=== PATIENT | male | born 1995 | race Caucasian/White ===

== ENCOUNTER → 2020-08-10 14:27 | Outpatient (REF) | payer OTHER, SELFPAY | LOC: ANHLAB 14:27 | PROVIDERS: PCP Family Medicine; Visit Provider Nurse Practitioner | DX: R23.4 Changes in skin texture (principal) | CPT/HCPCS: 88305 ==

== ENCOUNTER 2020-08-28 13:30 | Outpatient (CLI) | payer OTHER, SELFPAY ==
--- NOTE | ~2020-08-28 | US_ITS ---
US breast LT complete DATE: 08/28/2020 14:17 INDICATION: Left breast lump TECHNIQUE: Real-time imaging of the complete left breast with right breast comparison views COMPARISON: None FINDINGS: Mass or shadowing of either breast is evident. IMPRESSION: Negative examination If complaints persist, consider diagnostic mammography Reviewed, dictated and finalized at [facility]. Reviewed, dictated and finalized at [facility]. [facility]
== END 2020-08-28 13:31 | disposition home or self-care (01) ==
PROVIDERS: PCP Family Medicine; Visit Provider Nurse Practitioner
DX: N63.20 Unspecified lump in the left breast, unspecified quadrant (principal)
CPT/HCPCS: 76641

== ENCOUNTER 2024-04-27 12:48 | Outpatient (CLI) | payer OTHER, SELFPAY ==
--- NOTE | ~2024-04-27 | MMUS_ITS ---
EXAMINATION: MM diagnostic alysia LT w nilo, US breast LT complete HISTORY: Left breast enlargement with palpable abnormality. TECHNIQUE: Additional 3-D tomosynthesis images of the breasts were performed and synthetic 2-D images were generated. CAD analysis was submitted and interpreted. High resolution complete left breast ult rasound was performed. COMPARISON: Ultrasound dated 08/28/2020 BREAST PARENCHYMAL COMPOSITION: Dense: The breasts are heterogeneously dense, which may obscure small masses FINDINGS: MAMMOGRAPHIC FINDINGS: There is asymmetric gynecomastia, left greater than right. No discrete mass or architectural distorti on. There are no suspicious calcifications. ULTRASOUND: Complete US of all 4 quadrants of the left breast and retroareolar region was reviewed. At 4:00, 2 cm from the nipple there is a 6 mm cyst. No suspicious solid masses in the left breast to suggest malbismark bonner. IMPRESSION: 1. No evidence for malignancy in the left breast. Benign findings. 2. Recommend follow-up clinical management for gynecomastia. BI-RADS Category 2: Benign finding(s). Reviewed, dictated and finalized at [facility]. IMPRESSION: 1. No evidence for malignancy in the left breast. Benign findings. 2. Recommend follow-up clinical management for gynecomastia. BI-RADS Category 2: Benign finding(s).
== END 2024-04-27 12:49 | disposition home or self-care (01) ==
PROVIDERS: PCP Family Medicine; Visit Provider Plastic Surgery
DX: N63.20 Unspecified lump in the left breast, unspecified quadrant (principal); R92.8 Other abnormal and inconclusive findings on diagnostic imaging of breast
CPT/HCPCS: 76641; 77061; 77065; G0279

== ENCOUNTER 2024-09-02 05:52 | Day surgery (SDC) | payer OTHER, SELFPAY ==
--- NOTE | 2024-09-01 11:03 | P.PNAN_ITS ---
Anes - Initial Pre Proc Eval Procedure: Operation Date: 09/02/24 07:30 Proposed Procedures p Excision Left Breast Mass - Jennifer Higgins MD Date/Time: 09/01/24 11:03 Surgeon: Jennifer Higgins MD Pre Op Diagnosis: Left Breast Mass Patient Data Age: 29 Gender: M Height: 1.78 m Weight: 79.379 kg Allergies Allergy/AdvReac Type Severity Reaction Status Date / Time No Known Allergies Allergy Verified 09/02/24 06:21 Home Medications Medication Instructions Recorded Confirmed Type No Home Medications 04/07/24 09/02/24 History Patient hx anesthesia problems: none Family hx anesthesia problems: none Results Review: All pre-operative results and documents have been reviewed as part of the pre- operative evaluation. [facility] Family History Family History Grandparent High cholesterol Other Family history of Parkinson's disease Social History Social History Smoking status: Unknown if ever smoked Tobacco type: smokeless tobacco Smokeless tobacco user: chewing tobacco Alcohol intake: current Substance use: never Substance use type: does not use Living arrangements: with family Occupation/Education: occupation Gender identity (if verbalized by the patient): Male Sexual Orientation (if Verbalized by the Patient): Straight or Heterosexual Spiritual care concerns: No Agree to blood products: Yes Anes - Eval Final PreProcedure Day of Procedure 09/01/24 11:03 Patient weight: overweight Heart: regular rate and rhythm Lungs: clear to auscultation Airway: Mallampati scale class II Neurological: alert and oriented Last oral intake: >/= 8 hours ASA classification: II Emergent: no Anesthetic plan: proceed Anesthesia type and monitoring: general LMA and standard monitoring Results Review: All pre-operative results and documents have been reviewed as part of the pre- operative evaluation. Informed Consent: The patient's anesthetic plan and its attendant risks and benefits were discussed with the patient/family/POA. Questions were solicited and answers provided to the satisfaction of the patient/family/POA.
[2024-09-02] VITALS (8 sets, daily range): BP systolic 111–141; BP diastolic 71–86; PULSE 75–90; RESP 12–18; TEMP 36.5–36.8; O2SAT 98–100
[2024-09-02] MEDS: LACTATED RINGERS 1,000 ML 30 ML IV CONT (06:28)
--- NOTE | 2024-09-02 06:58 | PM.HPGS ---
History of Present Illness History of Present Illness Chief complaint: Left Breast Mass Narrative: Patient seen and examined in pre-operative holding area. No interval change in medical history or symptoms. Patient remembers previous discussion of benefits and alternatives to procedure. Continues to desire to proceed with left breast mass excision. I reviewed the risks including but not limited to bleeding ,infection, asymmetry, undesireable cosmetic appearance, partial/total skin/nipple loss, no change or worsening of symptoms, change in sensation, recurrence. I discussed the possible use of assistants and their level of participation in the case. Patient stated understanding and signed the consent form wishing to proceed Review of Systems Review of Systems: All systems reviewed & are unremarkable except as noted in HPI and below PMFSH Family History Family History Grandparent High cholesterol Other Family history of Parkinson's disease Social History Social History Smoking status: Unknown if ever smoked Tobacco type: smokeless tobacco Smokeless tobacco user: chewing tobacco Alcohol intake: current Substance use: never Substance use type: does not use Living arrangements: with family Occupation/Education: occupation Gender identity (if verbalized by the patient): Male Sexual Orientation (if Verbalized by the Patient): Straight or Heterosexual Spiritual care concerns: No Agree to blood products: Yes Meds Home Medications and Allergies Home Medications Medication Instructions Recorded Confirmed Type No Home Medications 04/07/24 09/02/24 History Allergies Allergy/AdvReac Type Severity Reaction Status Date / Time No Known Allergies Allergy Verified 09/02/24 06:21 Vital Signs Vital Signs - 24 hr 09/02/24 06:49 Temperature 36.8 C Pulse Rate 75 Respiratory Rate 18 Blood Pressure 117/78 Pulse Oximetry 100 Oxygen Delivery Room Air Exam Narrative: unchnaged Assessment and Plan Assessment and plan (1) Left breast mass: Qualifiers: Breast mass location: unspecified quadrant Qualified Code(s): N63.20 - Unspecified lump in the left breast, unspecified quadrant Code(s): N63.20 - Unspecified lump in the left breast, unspecified quadrant Status: Acute Assessment and Plan: cont as above
--- NOTE | 2024-09-02 06:59 | P.OP_ITS ---
Procedure Note - Detailed Date of Procedure 09/02/24 Pre-op Diagnosis Left Breast Mass Post-op Diagnosis Same Procedure Performed left breast mass excision Surgeon Jennifer Higgins MD [employer]ener renee newsome pa-c Anesthesia General Description of Procedure Patient was seen in the preoperative holding area where the consent form was signed the left breast was marked. Patient was taken back to the operating room and placed on the table in supine position. Time-out was performed with Anesthesia, surgeon, and staff agreeing patient's name, site, and surgery to be performed. SCDs were placed on the lower extremities and inflated. Antibiotics were given IV. After general anesthesia was administered the breast was prepped and draped in usual sterile fashion. I injected 10 cc of 1% lidocaine with epinephrine and 0.5% Marcaine plain for local anesthesia. I proceeded with making an incision with a 15 blade scalpel through skin and dermis along previous scar at the inferior nipple-areolar border and extending this laterally onto the chest. Bovie cautery used to dissect through subcutaneous tissue down to the mass. I proceeded with circumferential dissection of the mass with Bovie cautery, resecting it off of the pectoralis fascia. The resected specimen measured 6x3cm. After the palpable mass was excised I irrigated with normal saline and ensured hemostasis with Bovie cautery. Closure was performed with 3-0 Vicryl for deep and dermal closure followed by 4-0 Monocryl for subcuticular closure. A dressing of Mastisol, Steri-Strips, 4 x 4, Tegaderm and a breast binder was then applied. The patient was awakened from anesthesia and transferred to the recovery room in stable condition. Complications: None estimated blood loss: 5 cc disposition: Patient tolerated the procedure well and will be going home later today Renee Newsome PA-C was essential for positioning, retraction, closure and dressing placement [facility] Billing Surgery - Charge Forward: Surgery Billing (-AS for renee)
[2024-09-02] MEDS: ceFAZolin SODIUM 2 GM/20 ML SW SYRINGE IV PUSH (07:22)
[2024-09-02] MEDS: LIDO 1%/EPINEPHRINE 1:100,000 10 ML VIAL 5 ML INFILTRATE (07:46)
--- NOTE | 2024-09-02 12:50 | WPDANESPN ---
Anes - Prog Note Post-Op Date/Time: 09/02/24 12:50 Cardiovascular status: normal Respiratory status: normal Airway patency: baseline Mental status: baseline Post-Op hydration status: normal Vital Signs: Last Vital Signs Temp 36.5 C 09/02/24 08:03 Pulse 78 09/02/24 09:15 Resp 16 09/02/24 09:15 BP 141/83 H 09/02/24 09:15 Pulse Ox 100 09/02/24 09:15 O2 Del Method Room Air 09/02/24 09:15 O2 Flow Rate 8 09/02/24 08:30 Pain Score (VAS): 0 I/O: Intake & Output 09/01/24 09/02/24 09/02/24 23:59 07:59 15:59 Intake Total 300 Balance 300 Post-procedural complaints: none Patient Feedback: Patient satisfied with anesthetic care. Other Findings: Patient vital signs back to baseline. Patient denies nausea and vomiting. Patient's pain under control. Patient OK for discharge.
== END 2024-09-02 09:25 | disposition home or self-care (01) ==
PROVIDERS: PCP Family Medicine; Visit Provider Plastic Surgery
PROC: (CPT 19120; principal; 2024-09-02 07:30)
DX: D48.62 Neoplasm of uncertain behavior of left breast (principal)
CPT/HCPCS: 19120

== ENCOUNTER 2024-09-02 07:00 | Outpatient (NON) | payer OTHER, SELFPAY | END 2024-09-02 07:01 | disposition home or self-care (01) | PROVIDERS: PCP Family Medicine; Visit Provider Plastic Surgery | DX: N62 Hypertrophy of breast (principal) | CPT/HCPCS: 88305 ==